=== PATIENT | female | born 1975 | race Caucasian/White ===

== ENCOUNTER 2024-01-31 11:32 | Emergency (ER) | payer MEDICARE, SELFPAY ==
[2024-01-31 11:40] VITALS: BP 128/84; PULSE 99; RESP 20; TEMP 36.6; O2SAT 100
--- NOTE | 2024-01-31 11:59 | ED.URI ---
HPI - URI/Sore Throat General Chief Complaint: Upper Respiratory Infection Stated Complaint: head congestion Time Seen by Provider: 01/31/24 11:59 Source: patient, RN notes reviewed and old records reviewed Mode of arrival: ambulatory Limitations: no limitations History of Present Illness HPI Narrative: 48 year old female who presents to [facility] with complaints of having COVID 2 months ago and continuing to have some sinus congestion and drainage and slight sore throat. Patient denies any known fevers, chills or any body aches. Patient does ahve COPD and takes daily inhalers has not had any increase in cough or any acute dyspnea. Patient has not taken any OTC medications for her symptoms does take daily Singulair. MD elicited complaint: sore throat, rhinorrhea and nasal congestion Pertinent past history: COPD and other (COVID 2 month ago) Onset (ago): month(s) (2 months) Pain scale (0-10): 1 Able to tolerate fluids by mouth: Yes Treatments prior to arrival: none Related Data Home Medications Medication Instructions Recorded Confirmed albuterol sulfate 90 mcg/actuation inhalation 01/31/24 aerosol inhaler amitriptyline 75 mg tablet mg 01/31/24 atorvastatin 20 mg tablet mg 01/31/24 bupropion HCl 300 mg 24 hr tablet, mg PO 01/31/24 extended release cholecalciferol (vitamin D3) 1,250 01/31/24 mcg (50,000 unit) capsule fluticasone furoate 100 inhalation 01/31/24 mcg-vilanterol 25 mcg/dose inhalation powder montelukast 10 mg tablet mg 01/31/24 sertraline 100 mg tablet mg 01/31/24 Allergies Allergy/AdvReac Type Severity Reaction Status Date / Time clindamycin Allergy Rash Verified 01/31/24 11:45 Review of Systems Review of Systems: CONSTITUTIONAL: Denies malaise, chills, sweats, or fever. EYES: Denies visual changes, redness, or discharge. ENT: Reports rhinorrhea, congestion, sinus pressure,no otalgia and positive for sore throat. CARDIOVASCULAR: Denies chest pain, palpitations, or edema. RESPIRATORY: Reports cough.? Denies dyspnea. GASTROINTESTINAL: Denies abdominal pain, nausea, vomiting, diarrhea SKIN: Denies rash or itching. MUSCULOSKELETAL: Denies myalgia. NEUROLOGIC: Denies headache. All systems reviewed & are unremarkable except as noted in HPI and below PMFSH Past Medical History Medical History (Updated 02/01/24 @ 11:13 by Destiny Carlisle NP) Bipolar disorder COPD (chronic obstructive pulmonary disease) COVID-03 December 2023 Surgical History Surgical History (Updated 02/01/24 @ 11:15 by Destiny Carlisle NP) History of dental surgery edentulous Social History Social History (Updated 02/01/24 @ 11:03 by Destiny Carlisle NP) Smoking status: Former smoker Tobacco type: cigarettes Alcohol intake: current Alcohol use details: rare social Substance use type: does not use Gender identity (if verbalized by the patient): Female Comments At time of signature, agree with nursing past medical, surgical, social and family history. There is no relevant family history pertinent to the presenting complaint Exam Narrative: GENERAL: Well-appearing, well-nourished, and in no acute distress. HEAD: Normocephalic EYES: PERRLA, conjunctivae clear ENT: Nares clear, turbinates edematous and erythematous, clear discharge, sinus pressure,. Mucous membranes moist. TM pearly avilez with dull light reflex bilaterally; no tragal tenderness. Oropharynx erythematous without lesions. Tonsils not enlarged and without exudate, no drooling, no hoarseness, no trismus, uvula midline. NECK: Supple. No lymphadenopathy CHEST: Clear to auscultation, breath sounds equal. No wheezing, rhonchi, rales, or stridor. No respiratory distress, speaks in full sentences.no cough noted SAO2 100% on room air HEART: Regular rate and rhythm. No murmur heard. SKIN: Warm, dry, no rash. NEURO: Alert and oriented x3. PSYCH: Normal mood and affect Course Course E
== END 2024-01-31 12:36 | disposition home or self-care (01) ==
PROVIDERS: Emergency Provider Registered Nurse
DX: J06.9 Acute upper respiratory infection, unspecified (principal); Z87.891 Personal history of nicotine dependence; J44.9 Chronic obstructive pulmonary disease, unspecified; Z86.16 Personal history of COVID-19
CPT/HCPCS: 87081; 87880; 99213; G0463